=== PATIENT | female | born 1945 | race Caucasian/White ===

== ENCOUNTER → 2020-06-13 | Outpatient (CLI) | payer MEDICARE ==
[2020-06-13 11:47] LABS: HCT 37.4 % (34.0-46.0); HGB 13.7 gm/dL (11.4-16.0); MCH 32.3 pg (25.0-35.0); MCHC 36.5 g/dL (31.0-37.0); MCV 88.6 fL (80.0-100.0); Mean Platelet Volume 7.7; Platelet Count 236 k/uL (150-450); RBC 4.22 m/uL (3.80-5.40); RDW 13.4 % (11.5-15.5); WBC 7.1 k/uL (3.8-10.6)
[2020-06-13 13:25] LABS: Potassium 3.9 mmol/L (3.5-5.1)
== END | disposition home or self-care (01) ==
LOC: LABPAT 11:08
PROVIDERS: ATTEND Internal Medicine Interventional Cardiology
DX: Z01.812 Encounter for preprocedural laboratory examination (principal); I25.10 Atherosclerotic heart disease of native coronary artery without angina pectoris
CPT/HCPCS: 80051; 82565; 84520; 85027

== ENCOUNTER 2020-06-26 05:54 | Day surgery (SDC) | payer MEDICARE ==
[2020-06-24 11:14] VITALS: BMI 35.7
[2020-06-26] MEDS ORDERED: ATORVASTATIN 80 MG TAB PO STA (06:08)
[2020-06-26] MEDS ORDERED: NITROGLYCERIN SL TABS 0.4 MG TAB SUBLINGUAL PRN (06:08)
[2020-06-26] MEDS ORDERED: SODIUM CHLORIDE 0.9% 1,000 ML in EMPTY BAG 1 BAG IV ONE (06:08)
[2020-06-26] MEDS ORDERED: ALPRAZolam 0.25 MG TAB PO PRN (06:08)
[2020-06-26] MEDS ORDERED: ASPIRIN 325 MG TAB PO STA (06:08)
[2020-06-26] MEDS ORDERED: ALPRAZolam 0.5 MG TAB PO PRN (06:08)
[2020-06-26] MEDS ORDERED: SODIUM CHLORIDE 0.9% 1,000 ML IV ONE (06:23)
[2020-06-26 06:28] VITALS: RESP 16; TEMP 98
[2020-06-26] MEDS ORDERED: LIDOCAINE 1% INJ 10MG/ML (20 ML MDV) ONE (07:17)
[2020-06-26] MEDS ORDERED: HEPARIN SODIUM 1,000 UN/ML (10ML VL) ONE (07:17)
[2020-06-26] MEDS ORDERED: fentaNYL (PF) 50 MCG/ML 2 ML AMP ONE (07:17)
[2020-06-26] MEDS ORDERED: VERAPAMIL 2.5 MG/ML 2 ML AMP ONE (07:17)
[2020-06-26] MEDS ORDERED: fentaNYL (PF) 50 MCG/ML 2 ML AMP IV ONE (07:44)
[2020-06-26] MEDS ORDERED: LIDOCAINE 1% INJ 10MG/ML (20 ML MDV) SQ ONE (07:45)
[2020-06-26] MEDS ORDERED: VERAPAMIL SYRINGE (5 MG/10 ML) INTRAARTER ONE (07:46)
[2020-06-26] MEDS ORDERED: HEPARIN SODIUM 1,000 UN/ML (10ML VL) IV ONE (07:52)
[2020-06-26] MEDS ORDERED: IOPAMIDOL-370 125ML BTL INJ ONE (07:55)
[2020-06-26] MEDS ORDERED: RX INFO: IV CONTRAST WAS GIVEN 1 EACH MISC MISCELLANE PRN (08:13)
[2020-06-26] MEDS ORDERED: ACETAMINOPHEN TAB 500 MG TAB PO PRN (08:13)
[2020-06-26] MEDS ORDERED: SODIUM CHLORIDE 0.9% 1,000 ML IV SCH (08:15)
--- NOTE | 2020-06-26 08:37 | CC ---
CARDIAC CATHETERIZATION REPORT Mrs. Sams is a 74-year-old female with known history of coronary artery disease, hypertension, hyperlipidemia, and paroxysmal atrial fibrillation, who recently has been complaining of progressive dyspnea and was found to have evidence of inducible ischemia involving the lateral wall. In view of that, recommendation was made regarding cardiac catheterization. The procedure as well as the risks and the complications were discussed with the patient who is in full understanding and agreement. PROCEDURE: Patient was brought to the construction or leak gang laborer in a fasting semi-sedated state after receiving fentanyl and Benadryl and achieving moderate conscious sedated state. Using Xylocaine anesthesia and Seldinger technique, a 6-Iranian sheath was introduced in the right radial artery. Selective right and left coronary angiography performed using 5-Iranian 3.5 bend right and left Lori catheter. Multiple views of the coronary artery including hemiaxial views were obtained. Following that, 5-Iranian tight pigtail catheter was introduced in the left ventricle and pressures were calculated. Following that, catheter and sheath were removed. Hemostasis was obtained with deployment of a TR band. There was no immediate complication. Patient was returned to her room in stable condition. Of note, the patient received 5000 units of intravenous heparin as well as well as intra-arterial verapamil. FINDINGS: FLUOROSCOPY: There was significant calcification involving the distal left main and the proximal LAD. LEFT MAIN: This is a large-size vessel, bifurcating into distally to the LAD and left circumflex. Left main coronary artery has a 20% plaque distally. The rest of the vessel has no high-grade stenosis. LEFT ANTERIOR DESCENDING ARTERY: This is a large-size vessel giving rise to 2 diagonal branches. The left anterior descending artery proximally has 10% to 20% plaque. The takeoff of the diagonal branch has a 30% to 40% plaque. The rest of the vessel has no high-grade stenosis. LEFT CIRCUMFLEX: This is a nondominant vessel, large in caliber giving rise to 2 obtuse marginal branches. The left circumflex proximally has 10% to 20% plaque. The rest of the vessel has no high-grade stenosis. RIGHT CORONARY ARTERY: This is a large dominant vessel bifurcating distally PDA and posterolateral segment and branches. The proximal and mid segment of the RCA is stented. The stent is patent. There is about a 20% to 30% plaque with in-stent restenosis, but no evidence of high-grade stenosis. LEFT VENTRICULOGRAM: Left ventriculogram was not performed. HEMODYNAMICS: There was no gradient across the aortic valve. The left ventricular end-diastolic pressure was 12-14 mmHg. CONCLUSION: 1. Calcified coronary artery. 2. Mild triple-vessel coronary artery disease. RECOMMENDATION: In view of finding anatomy, I recommend to continue medical therapy with aggressive coronary risk modifications that have been initiated. Those findings and recommendation were discussed with the patient and her family and they are in full understanding and agreement. Duration of sedation is 15 minutes. MMODL / IJN: [id number] /
[2020-06-26] MEDS ORDERED: EZETIMIBE 10 MG TAB PO SCH (09:00)
[2020-06-26] MEDS ORDERED: amLODIPine 5 MG TAB PO SCH (09:00)
[2020-06-26] MEDS ORDERED: METOPROLOL SUCCINATE (ER) 50 MG TAB.ER.24H PO SCH (09:00)
[2020-06-26] MEDS ORDERED: ATORVASTATIN 20 MG TAB PO SCH (09:00)
[2020-06-26] MEDS ORDERED: RIVAROXABAN 20 MG TAB PO SCH (17:30)
[2020-06-26 18:56] VITALS: BP 151/69; PULSE 55
[2020-06-27] MEDS ORDERED: LEVOTHYROXINE 75 MCG TAB PO SCH (06:30)
== END 2020-06-26 13:36 | disposition home or self-care (01) ==
LOC: CATHCVL 05:54
PROVIDERS: ATTEND Internal Medicine Interventional Cardiology
DX: I25.10 Atherosclerotic heart disease of native coronary artery without angina pectoris (principal); I25.84 Coronary atherosclerosis due to calcified coronary lesion; I48.91 Unspecified atrial fibrillation; Z79.01 Long term (current) use of anticoagulants; Z79.899 Other long term (current) drug therapy; E78.2 Mixed hyperlipidemia; Z79.82 Long term (current) use of aspirin; Z88.5 Allergy status to narcotic agent; Z82.49 Family history of ischemic heart disease and other diseases of the circulatory system; F17.210 Nicotine dependence, cigarettes, uncomplicated
CPT/HCPCS: 93458; C1769; C1894; J2001; J3010; J1644; Q9967

== ENCOUNTER → 2022-12-03 | Outpatient (CLI) | payer MEDICARE ==
--- NOTE | 2022-12-06 23:47 | MM ---
Reason for Exam: Screening (asymptomatic). Last mammogram was performed 4 year(s) and 11 month(s) ago. Patient History: Menarche at age 11. First Full-Term at age 18. Left ovary removed at age 43. Hysterectomy at age 43. Postmenopausal. Risk Values: Princess 5 year model risk: 1.5%. NCI Lifetime model risk: 2.5%. Prior Study Comparison: 08/24/2016 Bilateral MG 3D screening mammo w/cad, Unknown. 12/28/2017 Bilateral MG 3D screening mammo w/cad, Unknown. Tissue Density: There are scattered fibroglandular densities. Findings: Analyzed By CAD. There is no suspicious group of microcalcifications or new suspicious mass in either breast. Overall Assessment: Negative, BI-RAD 1 Management: Screening Mammogram of both breasts in 1 year. . Patient should continue monthly self-breast exams. A clinical breast exam by your physician is recommended on an annual basis. This exam should not preclude additional follow-up of suspicious palpable abnormalities. Note on Princess scores and lifetime risk: 1. A Princess score greater than 3% is considered moderate risk. If this is the case, consider specialist referral to assess eligibility for a risk reducing agent. 2. If overall lifetime risk for the development of breast cancer is 20% or higher, the patient may qualify for future screening with alternating mammogram and breast MRI. Electronically signed and approved by: Jose Jasso M.D. Radiologist
== END | disposition home or self-care (01) ==
LOC: RADMAMWWP 10:39
PROVIDERS: ATTEND Family Medicine
DX: Z12.31 Encounter for screening mammogram for malignant neoplasm of breast (principal); Z78.0 Asymptomatic menopausal state
CPT/HCPCS: 77063; 77067